=== PATIENT | female | born 1960 | race Caucasian/White ===

== ENCOUNTER 2019-10-03 17:46 | Observation (INO) | payer BC ==
[2019-10-03 18:16] VITALS: BP 142/87
[2019-10-03] MEDS ORDERED: BUPROPION XL150 MG PO (18:30)
[2019-10-03] MEDS ORDERED: IMIPRAMINE HCL25 MG PO (18:30)
[2019-10-03] MEDS ORDERED: BUPROPION HCL100 MG PO (18:30)
[2019-10-03] MEDS ORDERED: IMIPRAMINE HCL50 MG PO (18:30)
[2019-10-03] MEDS ORDERED: OXCARBAZEPINE300 MG PO (18:30)
[2019-10-03 18:33] VITALS: BP 142/87
[2019-10-03] MEDS ORDERED: HYDRALAZINE HCL 20 MG/ML VIAL IV PRN (19:00)
[2019-10-03] MEDS ORDERED: MELATONIN 5 MG TABLET PO PRN (19:00)
[2019-10-03] MEDS ORDERED: ACETAMINOPHEN 325 MG TAB PO PRN (19:00)
[2019-10-03] MEDS ORDERED: ONDANSETRON HCL INJ 2MG/ML 2ML 2 MG/ML VIAL IV PRN (19:00)
--- NOTE | 2019-10-03 19:00 | NUR ---
RECEIVED REPORT FROM PREVIOUS NURSE. CALL LIGHT WITHIN REACH. PATIENT IN BED.
--- NOTE | 2019-10-03 19:50 | NUR ---
CALLED DR. ALLEN OFFICE AND TALKED TO EMILY MOISE ABOUT THE PATIENT'S DIET AND IF SHE WANTED THE MRI OF THE BRAIN DONE TODAY OR TOMORROW. SHE SAID IT CAN BE DONE TOMORROW AND PATIENT CAN BE ON A CARDIAC DIET.
[2019-10-03 19:52] VITALS: BP 127/72
[2019-10-03 20:12] VITALS: BP 127/72
[2019-10-03] MEDS: ACETAMINOPHEN/CODEINE 300MG - 30MG TAB PO PRN (21:38)
[2019-10-04] VITALS (7 sets, daily range): BP systolic 90–130; BP diastolic 52–86
[2019-10-04 05:41] LABS: BASOPHILS % 0.5 % (0.0-1.0); EOSINOPHILS # (AUTO) 0.1 (0.0-0.4); EOSINOPHILS % 1.3 % (0.0-6.0); HEMATOCRIT 35.3 % (34.2-44.1); HEMOGLOBIN 11.2 g/dL (12.0-16.0); LYMPHOCYTES # (AUTO) 1.3 (1.0-3.2); LYMPHOCYTES % 21.3 % (18.0-39.1); MEAN CORPUSCULAR HEMOGLOBIN 27.5 pg (28-32); MEAN CORPUSCULAR HGB CONC 31.7 g/dL (31-35); MEAN CORPUSCULAR VOLUME 86.5 fL (81-99); MONOCYTES # (AUTO) 0.7 (0.2-0.8); MONOCYTES % 12.1 % (4.4-11.3); NEUTROPHILS # (AUTO) 3.8 (2.1-6.9); NEUTROPHILS % 64.5 % (38.7-80.0); PLATELET COUNT 246 x10e3/uL (140-360); RED BLOOD COUNT 4.08 x10e6/uL (3.6-5.1); RED CELL DISTRIBUTION WIDTH 15.9 % (11.7-14.4)
[2019-10-04 06:06] LABS: ANION GAP 11.2 mmol/L (8-16); BLOOD UREA NITROGEN 12 mg/dL (7-26); BUN/CREATININE RATIO 16 (6-25); CALCIUM 8.8 mg/dL (8.4-10.2); CARBON DIOXIDE 27 mmol/L (22-29); CHLORIDE 109 mmol/L (98-107); CHOL/HDL RATIO 3.4 (3.0-3.6); CHOLESTEROL 215 MD/DL (0-199); CREATININE, SERUM 0.75 mg/dL (0.57-1.11); EST GLOMERULAR FILTRATION RATE > 60 ML/MIN (60-); GLUCOSE 104 mg/dL (74-118); HDL CHOLESTEROL 64 MG/DL (40-60); POTASSIUM 4.2 mmol/L (3.5-5.1); SODIUM 143 mmol/L (136-145)
[2019-10-04 06:27] LABS: THYROID STIMULATING HORMONE 4.143 uIU/mL (0.350-4.940)
[2019-10-04 06:35] LABS: LDL CHOLESTEROL 135 MG/DL (60-130); TRIGLYCERIDES 82 MG/DL (0-149)
--- NOTE | 2019-10-04 07:17 | NUR ---
GAVE BEDSIDE SHIFT REPORT TO ONCOMING NURSE. CALL LIGHT WITHIN REACH. PATIENT IN BED.
[2019-10-04] MEDS: FAMOTIDINE 20 MG TAB PO SCH ×2 (07:30→16:35)
[2019-10-04] MEDS: ACETAMINOPHEN/CODEINE 300MG - 30MG TAB PO PRN (08:30)
--- NOTE | 2019-10-04 09:44 | NUR ---
spoke with Dr. Mayers regarding new consult. no new orders given.
[2019-10-04] MEDS ORDERED: ASPIR 8181 MG PO (09:56)
--- NOTE | 2019-10-04 10:39 | NUR ---
RECEIVED REPORT. PATIENT IS IN STABLE CONDITION WITH NO S/S OF RESPIRATORY DISTRESS. PATIENT STATED RIGHT SIDED PAIN HAS IMPROVED; PAIN LEVEL IS NOW A 3/10. TELEMETRY APPLIED. BRUISE NOTED ABOVE PATIENT'S RIGHT EYEBROW. CALL LIGHT IS WITHIN REACH, PATIENT INSTRUCTED TO CALL FOR ASSISTANCE NEEDED.
[2019-10-04] MEDS ORDERED: TEMAZEPAM15 MG PO (11:20)
[2019-10-04] MEDS ORDERED: DEPAKOTE250 MG PO (11:22)
--- NOTE | 2019-10-04 13:19 | Consultation ---
DATE OF CONSULTATION: 10/04/2019 Psychiatric Consultation REASON FOR CONSULTATION: To evaluate the patient's medications and mood. HISTORY OF PRESENT ILLNESS: The patient is a 59-year-old female, admitted to [facility] for further care, after she was seen at the Urgent Care at for syncope and head injury. The patient claims she was at home and passed out, found herself lying on the floor with swelling on the forehead. As per the note, the patient had four previous episodes of syncope over the last 6 months that coincides with the start of new antidepressant medication. The patient has history of anxiety and depression as per the note. The last EKG at the Urgent Care noted that the patient had QTc corrected prolongation of 498 and she was seen at the Urgent Care on the 02 of October. Today, the patient is seen lying on the bed. She is alert, awake, and oriented to situation. She is calm and cooperative. She is answering questions appropriately. She reports feeling intermittent, anxious, and depressed due to the of her a year ago, who committed suicide, where she found him there. Since then, she has been seeing at his clinic for mood. She reports a history of anxiety and depression. Denies any history of seizures. No seizure history is reported in the medical record. The patient is waiting for a CT and MRI of the brain and carotid Dopplers. She denies any feeling hopelessness. She reports intermittent helplessness. She denies suicidal or homicidal ideation. She reports intermittent problem even with the medication that is prior to taking the TCA imipramine at home. She was able to sleep at night. She denies any problem with appetite. She denies any hallucination, but reports seeing shadows at times and reports on the wall. In addition, the patient claims her medication at home are Wellbutrin XL 300 daily, oxcarbazepine 900 HS, and TCA 175 at nighttime. EKG reported to the nurse that she has sinus rhythm at this time. Discussed medication with the patient and also the nurse. PAST PSYCHIATRIC HISTORY: The patient reports history of anxiety and depression. She denies past suicide attempts. She denies alcohol and drug use. FAMILY HISTORY: The patient denies past psychiatric family history, although has been committed suicide a year ago. SOCIAL HISTORY: The patient lives alone. MENTAL STATUS EXAM: The patient is middle-aged female, alert, awake, and oriented to situation. Calm and cooperative. Her mood is depressed and anxious. Denies suicidal or homicidal ideation. Denies any hallucination. Affect is blunt. Well groomed. Psychomotor state is passive. No paranoia elicited. Insight and judgment are fair. Memory appears to be grossly intact. CURRENT MEDICATION: 1. Tylenol No.3. 2. Pepcid. 3. Melatonin. 4. Hydralazine. 5. Zofran. 6. Tylenol p.r.n. LABORATORY DATA: WBC 5.95, RBC 4.08, hemoglobin 11.2, hematocrit 35.2, platelets 246. Sodium 143, potassium 4.2, chloride 109, CO2 27, BUN 12, and creatinine 0.75. ASSESSMENT: 1. Major depressive disorder, recurrent, moderate. 2. Rule out bipolar. PLAN: 1. To add Depakote 250 mg p.o. at bedtime to replace her other mood stabilizer that she is taking at home. 2. Continue Wellbutrin. 3. Discontinue TCA. 4. Add temazepam 15 mg p.o. at bedtime as needed. 5. I recommend the patient follow up with her psychiatrist within one week. 6. The patient is cleared from psych standpoint. Thank you for this consultation. Dictated by Ning Daniels PA-C Marilyn Mckenzie MD QTV/MODL /[id number]
--- NOTE | 2019-10-04 13:39 | Consultation ---
DATE OF CONSULTATION: Neurology Consultation REASON FOR CONSULTATION: Multiple falls, possible syncope. HISTORY OF PRESENT ILLNESS: The patient comes to my attention for multiple falls. She has had multiple falls in the last last 2 years or so. She is ambulating normally. When she falls down, she is not sure if loses consciousness, she is oriented immediately after waking up. She has difficulty getting up the floor. She denies headache. Denies chest pain. Does have bruise, found to have from the falls. She states nonmechanical. She has , but she does feel diffusely weak . Denies visual changes. No chest pain, shortness of breath, or other prodrome or aura like events. PAST MEDICAL HISTORY: Includes history of sleep disorder and difficulty initiating or maintaining sleep. Hyperlipidemia. Denies any history of epilepsy or meningitis or encephalitis. As far as her head traumas are going, they are relatively minor. They are associated with falls from a standing position. She also had reports that she has sometimes trouble getting out of bed . SOCIAL HISTORY: No tobacco, drugs, or alcohol. PHYSICAL EXAMINATION: VITAL SIGNS: Temperature 96.2, pulse is 80, blood pressure is . HEENT: Extraocular muscles intact. Face symmetric. Tongue is midline. Speech is clear. There bruise on the right upper side of her head. There is no laceration. there is no nuchal rigidity. Trachea is midline. Carotids show no bruit. CARDIOVASCULAR: Regular rate and rhythm. PULMONARY: Clear to auscultation. ABDOMEN: Soft and nontender. EXTREMITIES: Her strength is 5/5. She has low-amplitude high-frequency tremors in bilateral upper extremities, which are nonpainful, but very overt. Reflexes are 2/4 in uppers and lowers. The sensory is grossly intact in uppers and lowers. There is no ataxia or dysmetria. ASSESSMENT AND PLAN: Sunitha Phillips comes to my attention for multiple falls over short period of time of unclear etiology with no apparent overt syncope or convulsive episodes, possible tendinopathy versus epilepsy such as drop attacks. She does have a psych history, although I do not think it is necessarily contributing to this situation. RECOMMENDATION: At this time, we will get vascular imaging and MRI of the brain and outpatient workup for tendinopathy including genetic testing, EMG, and EEG for possible underlying epileptogenicity. The sleep study may be helpful. We are going to see the patient on Rozerem for sleep initiation until further workup for examination be evaluated. This may also be an event of cataplexia, which can present with sleep disorders at this age, and once diagnosed, can be treated with neuro stimulants as the patient tolerated them. If needed, please come back. Otherwise, if the diagnostic imaging is negative and the past imaging negative, the patient can be discharged. MD JERMAINE COLLIER/JAMES /[id number]
--- NOTE | 2019-10-04 13:53 | Diagnostic Imaging Report ---
EXAMINATION: MRI of the brain without contrast. HISTORY: Syncope, fell and hit the right side of the head, pain COMPARISON: None. TECHNIQUE: Sagittal T2; axial DWI, T2, FLAIR, T1-IR, T2 gradient echo; coronal FLAIR. FINDINGS: Parenchyma: 1. A few scattered and mildly confluent periventricular white matter T2 and FLAIR hyperintense foci, which most likely correspond to mild chronic microvascular ischemic changes, within normal limits for age. Otherwise there are no areas of abnormal signal intensity in the brain parenchyma. 2. No mass, hemorrhage, acute or chronic infarcts. Skull: Right frontotemporal scalp swelling, likely related to recent trauma/syncope without discrete displaced fractures or bone marrow edema. Vessels: Expected flow voids present in the major arteries and dural sinuses. Extra-axial spaces: No abnormal signal intensity or mass effect. Brain volume: Within normal limits for age. Ventricles: No hydrocephalus or displacement. Foramen magnum: Unremarkable. Sella: Unremarkable. Paranasal / mastoid sinuses: No significant inflammatory disease. IMPRESSION: 1. No acute posttraumatic intracranial abnormalities, no evidence of hemorrhage. 2. Mild nonspecific chronic microvascular ischemic changes. 3. Right frontotemporal scalp/soft tissue swelling without underlying displaced fractures. Signed by: Dr. Millicent Bender M.D. on 10/04/2019 1:50 PM
[2019-10-04] MEDS ORDERED: ONDANSETRON HCL 4 MG ORAL DISINTEGRATING TAB PO PRN (14:00)
[2019-10-04] MEDS ORDERED: ROZEREM8 MG PO (15:22)
--- NOTE | 2019-10-04 16:55 | NUR ---
PROVIDED WALKER TO PT OBTAINED SIGNATURES AND WILL PUT IN CENTRAL SUPPLY BOX.
--- NOTE | 2019-10-04 17:15 | Discharge Summary ---
ADMISSION DIAGNOSES: 1. Frequent falls. 2. Depression and anxiety. DISCHARGE DIAGNOSES: 1. Frequent falls. 2. Depression and anxiety. 3. Rule out cerebrovascular accident. HISTORY: Depression and anxiety. SURGICAL HISTORY: None. FAMILY HISTORY: The patient's dad had diabetes and a stroke. The patient's dad and grandmother had cancer. SOCIAL HISTORY: Noncontributory. HOSPITAL COURSE: A 59-year-old female, admits with complaints of fall yesterday. She hit her head on the front door after falling. She got a little dizzy before falling, but not much. She denies tripping and loss of consciousness. Her psych medications were changed in March to April 2019. She admits to frequent falls. On admission, echo showed an EF of 65%. EKG was normal sinus rhythm. MRI of the brain showed no acute posttraumatic intracranial abnormality and no evidence of hemorrhage. TSH was within normal limits. Cholesterol and LDL were a little elevated. The patient was advised to eat low-fat, low-cholesterol diet. Both Neurology and Psych were consulted, who changed the patient's home medicine. She will discontinue all current home medicine and take only Depakote and Rozerem p.r.n., as well as aspirin daily. The patient understands discharge instructions and agrees to plan. She will follow up with primary care Psychology and Neurology in 1 to 2 weeks. The patient understands instructions and agree. Dictated by Kateryna Cruz NP MD STEW Yao/JAMES /[id number]
--- NOTE | 2019-10-04 18:09 | NUR ---
PATIENT DISCHARGE HOME- PATIENT OFF THE UNIT AT 1759 PER WHEELCHAIR ACCOMPANIED BY RN AND PCT TO THE FRONT LOBBY. PATIENT IS IN STABLE CONDITION WITH NO S/S OF RESPIRATORY DISTRESS. NO PAIN VOICED. IV REMOVED WITH TIP INTACT. DISCHARGE TEACHING, INSTRUCTIONS, AND MEDICATIONS GIVEN TO THE PATIENT. ALL PERSONAL ITEMS INCLUDING THE WALKER WERE TAKEN BY THE PATIENT.
[2019-10-04] MEDS ORDERED: TEMAZEPAM 7.5 MG CAP PO PRN (21:00)
[2019-10-04] MEDS ORDERED: DIVALPROEX SODIUM 250 MG TAB...DR PO SCH (21:00)
[2019-10-05] MEDS ORDERED: BUPROPION HCL 150 MG TABCR PO SCH (09:00)
--- NOTE | 2019-10-05 09:33 | NUR ---
LATE ENTRY: ORDERS FOR HOME HEALTH SKILLED NURSE AND PT/OT EVAL AND TREAT YESTERDAY PRIOR TO DC CHOICE LETTER SIGNED FOR [facility] AND PLACED IN CHART CALLED [facility] AND SPOKE WITH LUIS PH: [phone] CLINICALS FAXED TO [phone] CONFIRMATION REC'D THEY WILL RUN INSURANCE AND VERIFY THAT THEY CAN TAKE PT AND WILL CALL ME BACK
--- NOTE | 2019-10-05 11:48 | NUR ---
REC'D PHONE CALL FROM LUIS AT [facility] WHO STATES PT'S INSURANCE IS IN NETWORK BUT PT MUST BE REFERRED TO BY HER PCP HER PLAN ONLY [facility] AT 50% LUIS STATES SHE CALLED PT AND NOTIFIED HER OF REQUIREMENTS FROM HER INSURANCE PRIOR TO STARTING HOME HEALTH AND SHE UNDERSTANDS AND STATES, "I UNDERSTAND, I'LL THINK ABOUT IT".
== END 2019-10-04 17:59 | disposition home health service (06) ==
LOC: MED/SURG 17:49 → INTOOBSV 17:49
PROVIDERS: ADMIT Internal Medicine; ATTEND Internal Medicine
DX: R42 Dizziness and giddiness (principal); Z91.81 History of falling; F41.9 Anxiety disorder, unspecified; F33.1 Major depressive disorder, recurrent, moderate; Z83.3 Family history of diabetes mellitus; Z82.3 Family history of stroke; Z80.9 Family history of malignant neoplasm, unspecified
CPT/HCPCS: 36415; 70551; 80048; 80061; 83036; 84443; 85025; 93306; 93880; 97116; 97161; 97530; G0378 ×2

== ENCOUNTER 2020-05-12 18:15 | Emergency (ER) | payer BC ==
[~2020-05-12] VITALS: Ht 165.1 cm; Wt 74.8 kg
[~2020-05-12 18:15] MED LIST: ASPIR 8181 MG PO; BUPROPION HCL100 MG PO; BUPROPION XL150 MG PO; DEPAKOTE250 MG PO; IMIPRAMINE HCL25 MG PO; IMIPRAMINE HCL50 MG PO; OXCARBAZEPINE300 MG PO; ROZEREM8 MG PO; TEMAZEPAM15 MG PO
[2020-05-12] MEDS ORDERED: SODIUM CHLORIDE 0.9% 1000ML 1,000 ML IV ONE (18:30)
[2020-05-12 18:43] LABS: BASOPHILS % 0.3 % (0.0-1.0); HEMATOCRIT 45.7 % (34.2-44.1); HEMOGLOBIN 15.4 g/dL (12.0-16.0); LYMPHOCYTES # (AUTO) 1.1 (1.0-3.2); LYMPHOCYTES % 8.4 % (18.0-39.1); MEAN CORPUSCULAR HEMOGLOBIN 26.8 pg (28-32); MEAN CORPUSCULAR HGB CONC 33.7 g/dL (31-35); MEAN CORPUSCULAR VOLUME 79.5 fL (81-99); MONOCYTES # (AUTO) 0.6 (0.2-0.8); MONOCYTES % 4.2 % (4.4-11.3); NEUTROPHILS # (AUTO) 11.4 (2.1-6.9); NEUTROPHILS % 86.5 % (38.7-80.0); PLATELET COUNT 238 x10e3/uL (140-360); RED BLOOD COUNT 5.75 x10e6/uL (3.6-5.1); RED CELL DISTRIBUTION WIDTH 17.4 % (11.7-14.4)
[2020-05-12 19:00] LABS: SALICYLATE < 5.0 mg/dL (0-30)
[2020-05-12 19:01] LABS: ALANINE AMINOTRANSFERASE 55 IU/L (0-55); ALBUMIN 4.5 g/dL (3.5-5.0); ALBUMIN/GLOBULIN RATIO 1.6 (0.8-2.0); ALKALINE PHOSPHATASE 101 IU/L (40-150); BLOOD UREA NITROGEN 13 mg/dL (7-26); BUN/CREATININE RATIO 17 (6-25); CALCIUM 9.3 mg/dL (8.4-10.2); CARBON DIOXIDE 19 mmol/L (22-29); CHLORIDE 100 mmol/L (98-107); CREATINE KINASE 46 IU/L (29-168); CREATININE, SERUM 0.78 mg/dL (0.57-1.11); EST GLOMERULAR FILTRATION RATE > 60 ML/MIN (60-); GLUCOSE 147 mg/dL (74-118); SODIUM 138 mmol/L (136-145)
[2020-05-12 21:43] LABS: CLARITY,URINE SL CLOUDY (CLEAR); COLOR,URINE YELLOW (YELLOW); LEUKOCYTE ESTERASE ,URINE NEGATIVE (NEGATIVE); NITRITE,URINE NEGATIVE (NEGATIVE); PROTEIN,URINE DIPSTICK NEGATIVE (NEGATIVE)
[2020-05-12 21:44] LABS: AMPHETAMINES SCREEN,URINE NEGATIVE (NEGATIVE); BENZODIAZEPINES SCREEN,URINE POSITIVE (NEGATIVE); KETONES,URINE 3+ (NEGATIVE); PHENCYCLIDINE SCREEN,URINE NEGATIVE (NEGATIVE); URINE UROBILINOGEN 1 mg/dL (0.2 - 1)
[2020-05-12 21:50] LABS: BACTERIA,URINE MODERATE /HPF; EPITHELIAL CELLS,URINE RARE /LPF
[2020-05-13 22:15] VITALS: BP 105/74
== END 2020-05-13 22:18 ==
LOC: ER 18:21
DX: T14.91XA Suicide attempt, initial encounter (principal); T42.4X2A Poisoning by benzodiazepines, intentional self-harm, initial encounter; F32.9 Major depressive disorder, single episode, unspecified; Z20.828 Contact with and (suspected) exposure to other viral communicable diseases
CPT/HCPCS: 36415; 70450; 71045; 80053; 80307; 80320; 80329 ×2; 81001; 82550; 82553; 84484; 85025; 93005; 99285; J7030; U0002